=== PATIENT | male | born 1985 | race Asian ===

== ENCOUNTER 2017-10-13 21:36 | Emergency (ER) | payer OTHER ==
[~2017-10-13] VITALS: Ht 172.7 cm; Wt 83.9 kg
--- OUTSIDE RECORDS SUMMARY | 2017-10-13 21:43 | XMS REPORT ---
Author Author ANTONIO SUBRAMANIAN Organization [employer] Address Unknown Phone Unavailable Care Team Providers Care Consulting Business Developer Name Role Phone ANTONIO SUBRAMANIAN CP Unavailable Allergies, Adverse Reactions, Alerts Substance Reaction Event Type N.K.D.A. Info Not Available Non Drug Allergy Problems Problem Type Condition Code Onset Dates Condition Status Assessment Vomiting, nausea presence unspecified, unspecified intactability, vomiting of unspecified type R11.10 Active Medications Medication Code System Code Instructions Start Date End Date Status Dosage Tylenol Cold/Flu Severe [facility] [place] [id number] [id number] MG Orally every 4 hrs 2 tablets as needed Procedures Procedure Coding System Code Date Office Visit, Est Pt., Level 3 CPT-4 93489 March 23, 2016 Vital Signs Date/Time: March 23, 2016 Cardiac Monitoring Heart Rate 72 bpm Weight 190.8 lbs Height 67 in Blood Pressure Diastolic 82 mmHg Blood Pressure Systolic 140 mmHg Results No Known Results Summary Purpose [employer] Submission
--- OUTSIDE RECORDS SUMMARY | 2017-10-13 21:43 | XMS REPORT | Continuity of Care Document ---
Author Author [facility] Address Unknown Phone Unavailable Allergies Active Description Code Type Severity Reaction Onset Reported/Identified Relationship to Patient Clinical Status Yes aspirin Drug Allergy N/A N/A 05/25/2009 Medications There is no data. Problems Date Dx Coded Attending Type Code Diagnosis Diagnosed By 05/25/2009 ATUL JOAQUIN DDS 465.9 ACUTE UPPER RESPIRATORY INFECTIONS OF UNSPECIFIED SITE Procedures There is no data. Results There is no data. Encounters ACCT No. Visit Date/Time Discharge Status Pt. Type Provider Facility Loc./Unit Complaint [id number] 08/28/2011 10:22:00 08/28/2011 23:59:59 [facility] Outpatient ATUL JOAQUIN DDS
[2017-10-13 22:16] VITALS: BP 119/81
== END 2017-10-14 02:00 | disposition left against medical advice (07) ==
LOC: EDUNIT# 21:36 → ER 21:39
DX: M54.9 Dorsalgia, unspecified (principal)
CPT/HCPCS: 99281